=== PATIENT | female | born 1970 | race Caucasian/White ===

== ENCOUNTER 2018-09-27 14:54 | Outpatient (CLI) | payer OTHER ==
[2018-09-27] MEDS ORDERED: FISH OIL PO (15:20)
[2018-09-27] MEDS ORDERED: MULT-516 PO (15:20)
[2018-09-27] MEDS ORDERED: VITAMIN D3 (15:20)
[2018-09-27] MEDS ORDERED: BIOTIN PO (15:20)
[2018-09-27 15:44] LABS: BASOPHILS # (AUTO) 0.09 x10^3/uL (0-0.1); BASOPHILS % (AUTO) 1 % (0-1); EOSINOPHILS # (AUTO) 0.31 x10^3/uL (0-0.4); EOSINOPHILS % (AUTO) 4 % (1-7); LYMPHOCYTES # (AUTO) 2.74 x10^3/uL (1-3.4); LYMPHOCYTES % (AUTO) 31 % (22-44); MD NO; MEAN CORPUSCULAR HEMOGLOBIN 28.5 pg (27.0-34.8); MEAN CORPUSCULAR HGB CONC 33.5 g/dL (32.4-35.8); MEAN CORPUSCULAR VOLUME 85.1 fL (80-100); MEAN PLATELET VOLUME 8.7 fL (7.4-10.4); MONOCYTES # (AUTO) 0.62 x10^3/uL (0.2-0.8); MONOCYTES % (AUTO) 7 % (2-9); NEUTROPHILS # (AUTO) 5.14 x10^3/uL (1.8-6.8); NEUTROPHILS % (AUTO) 58 % (42-75); PLATELET COUNT 299 x10^3/uL (130-400); RED BLOOD COUNT 4.66 x10^6/uL (3.82-5.3); RED CELL DISTRIBUTION WIDTH 13.4 % (9.6-15.2)
[2018-09-27 15:45] LABS: MICROSCOPIC INDICATED
[2018-09-27 15:51] LABS: ANION GAP 5 mmol/L (5-15); CALCIUM 9.5 mg/dL (8.5-10.1); CHLORIDE 107 mmol/L (98-107); CREATININE 0.78 mg/dL (0.55-1.02)
== END 2018-09-27 23:59 | disposition home or self-care (01) ==
LOC: STAR 14:54
PROVIDERS: ATTEND Urology
DX: Z01.818 Encounter for other preprocedural examination (principal); N20.0 Calculus of kidney
CPT/HCPCS: 36415; 80048; 81001; 85025; 87086; 93005

== ENCOUNTER 2018-10-06 11:32 | Day surgery (SDC) | payer OTHER ==
[~2018-10-06] VITALS: Ht 160 cm; Wt 103.0 kg
[2018-10-06 12:16] VITALS: BP 123/87
== END 2018-10-06 18:25 | disposition home or self-care (01) ==
LOC: OUT 11:32
PROVIDERS: ATTEND Urology
DX: N20.0 Calculus of kidney (principal); E66.01 Morbid (severe) obesity due to excess calories; Z68.43 Body mass index [BMI] 50.0-59.9, adult; Z72.89 Other problems related to lifestyle; Z87.891 Personal history of nicotine dependence; Z90.710 Acquired absence of both cervix and uterus; Z90.49 Acquired absence of other specified parts of digestive tract
CPT/HCPCS: 50590; 52005; 74420; C1758; C1769; J0690; J1100; J1885; J2250; J2405; J2704; J3010; J7120; Q9967